=== PATIENT | female | born 1955 | race Caucasian/White ===

== ENCOUNTER 2024-05-14 23:27 | Inpatient (IN) | payer BC ==
[~2024-05-14] VITALS: Ht 160 cm; Wt 63.6 kg
[2024-05-14] MEDS ORDERED: VANCOMYCIN 1 GM /D5W 250 ML PB IV ONE (23:45)
[2024-05-15] MEDS: VANCOMYCIN 1 GM in IV D5W 250 ML IV ONE (00:02)
[2024-05-15 00:04] LABS: BASOPHILS % (AUTO) 0.5 % (0.0-2.0); EOSINOPHILS # (AUTO) 0.6 K/uL (0.0-0.7); EOSINOPHILS % (AUTO) 5.9 % (0.0-6.0); HEMATOCRIT 29 % (33-45); HEMOGLOBIN 9.3 g/dL (11.5-14.8); LYMPHOCYTES # (AUTO) 0.9 K/uL (0.8-4.8); LYMPHOCYTES % (AUTO) 9.6 % (20.0-44.0); MEAN CORPUSCULAR HEMOGLOBIN 27 PG (26.0-33.0); MEAN CORPUSCULAR HGB CONC 32 g/dl (31.0-36.0); MEAN CORPUSCULAR VOLUME 83 fL (82-100); MONOCYTES % (AUTO) 10.5 % (2.0-12.0); NEUTROPHILS % (AUTO) 73.5 % (43.0-81.0); PLATELET COUNT (AUTO) 360 K/uL (150-450); RED BLOOD CELL COUNT(AUTO) 3.46 MIL/uL (4.0-5.2); WHITE BLOOD COUNT (AUTO) 9.5 K/uL (4.3-11.0)
[2024-05-15 00:21] LABS: LACTIC ACID 1.7 mmol/L (0.4-2.0)
[2024-05-15 00:23] LABS: CARBON DIOXIDE 27 mmol/L (21-32); CHLORIDE 102 mmol/L (98-107); GLUCOSE 153 mg/dL (74-106); POTASSIUM 3.5 mmol/L (3.5-5.1); SODIUM SERUM 138 mmol/L (136-145); UREA NITROGEN, BLOOD 31 mg/dL (7-18)
[2024-05-15 00:34] LABS: INR 1.11 (0.91-1.10); PARTIAL THROMBOPLASTIN TIME 27.8 SEC (24.3-34.3); PROTHROMBIN TIME 11.7 SECS (9.2-11.1)
[2024-05-15 00:41] LABS: ALANINE AMINOTRANSFERASE 29 U/L (12-78); ALBUMIN 1.6 g/dL (3.4-5.0); ALKALINE PHOSPHATASE 189 U/L (46-116); ASPARTATE AMINOTRANSFERASE 31 U/L (15-37); BILIRUBIN,DIRECT 0.1 mg/dL (0.0-0.2); BILIRUBIN,TOTAL 0.2 mg/dL (0.2-1.0); TOTAL PROTEIN, SERUM 6.7 g/dL (6.4-8.2)
[2024-05-15 00:44] LABS: APPEARANCE,URINE CLEAR (CLEAR); BILIRUBIN,URINE NEGATIVE (NEGATIVE); BLOOD, URINE NEGATIVE Ery/uL (NEGATIVE); COLOR,URINE YELLOW (YELLOW); KETONES,URINE NEGATIVE (NEGATIVE); LEUKOCYTE ESTERASE ,URINE NEGATIVE (NEGATIVE); NITRITE, URINE NEGATIVE (NEGATIVE); PH,URINE 5.5 (5.0-8.0); PROTEIN,URINE TRACE mg/dl (NEGATIVE); UGLUCOSE NEGATIVE (NEGATIVE); UROBILINOGEN,URINE 0.2 EU/dL (0.2)
[2024-05-15] MEDS ORDERED: AZITHROMYCIN 500 MG VIAL ONE (01:06)
[2024-05-15] MEDS ORDERED: CEFTRIAXONE 1GM BAG (ER ONLY) 50 ML IV ONE (01:06)
[2024-05-15] MEDS: AZITHROMYCIN 500 MG in IV D5W 250 ML IV ONE (01:17)
[2024-05-15] MEDS: IV NS 0.9% 1,000 ML BAG IV ONE (01:22)
[2024-05-15] MEDS: CEFTRIAXONE 1GM BAG (ER ONLY) 1 GM/50 ML PIGGYBACK IV ONE (01:26)
[2024-05-15] MEDS ORDERED: MAG HYDROX/AL HYDROX/SIMETH 30 ML UDC PO PRN (02:00)
[2024-05-15] MEDS ORDERED: ONDANSETRON HCL/PF 4 MG/2 ML VIAL IVP PRN (02:00)
[2024-05-15] MEDS ORDERED: Z GUARD REMEDY 4 OZ OINT TP PRN (02:00)
[2024-05-15] MEDS ORDERED: DEXTROSE 50%-WATER 50 ML DISP.SYRIN IV PRN (02:00)
[2024-05-15] MEDS ORDERED: MAGNESIUM HYDROXIDE 30 ML UDC PO PRN ×2 (02:00→09:30)
[2024-05-15 04:00] VITALS: BP 125/50; TEMP 98.2; O2SAT 99
[2024-05-15] MEDS: ACETAMINOPHEN 325 MG TABLET PO PRN (04:44)
[2024-05-15] MEDS: IV NS 0.9% 1,000 ML IV PRN (04:45)
[2024-05-15] MEDS: BLOOD SUGAR DIAGNOSTIC 1 EACH STRIP IN SCH (07:23)
[2024-05-15 08:00] VITALS: BP 121/43; TEMP 97.7; O2SAT 100
[2024-05-15] MEDS ORDERED: PANT40TA2 PO (08:03)
[2024-05-15] MEDS ORDERED: FERR325T23 PO (08:03)
[2024-05-15] MEDS ORDERED: CLOP75TA15 PO (08:03)
[2024-05-15] MEDS ORDERED: INSU100V39 SQ (08:03)
[2024-05-15] MEDS ORDERED: ATOR10TA PO (08:03)
[2024-05-15] MEDS ORDERED: ACET-2030 PO (08:03)
[2024-05-15] MEDS ORDERED: SPIR25TA6 PO (08:03)
[2024-05-15] MEDS ORDERED: CARV12.5 PO (08:03)
[2024-05-15] MEDS ORDERED: GABA600T12 PO (08:03)
[2024-05-15] MEDS ORDERED: LEVO100T PO (08:03)
[2024-05-15] MEDS ORDERED: ASCO-352 PO (08:03)
[2024-05-15] MEDS ORDERED: ALPR0.25 PO (08:03)
[2024-05-15] MEDS ORDERED: IPRA3AMP22 IH (08:03)
[2024-05-15] MEDS ORDERED: SITA100T PO (08:03)
[2024-05-15] MEDS ORDERED: BUME1TAB34 PO (08:03)
[2024-05-15] MEDS ORDERED: SACU1TAB PO (08:03)
[2024-05-15] MEDS ORDERED: ASPI-1169 PO (08:03)
[2024-05-15] MEDS ORDERED: CHOL100062 PO (08:03)
[2024-05-15] MEDS ORDERED: LEVO750T46 PO (08:03)
[2024-05-15] MEDS ORDERED: BISA10SU11 RC (08:03)
[2024-05-15] MEDS ORDERED: VANCOMYCIN HCL IV (08:03)
[2024-05-15] MEDS ORDERED: HYDR2TAB4 PO (08:03)
[2024-05-15] MEDS ORDERED: MAGN400O6 PO (08:03)
[2024-05-15] MEDS ORDERED: MULT-594 PO (08:03)
[2024-05-15] MEDS ORDERED: BISACODYL SUPP (10 MG) 10 MG/SUPP.RECT SUPP.RECT RC PRN (09:30)
[2024-05-15] MEDS ORDERED: ACETAMINOPHEN ES 500 MG TABLET PO PRN (09:30)
[2024-05-15] MEDS: GABAPENTIN 400 MG CAPSULE PO SCH (09:39)
[2024-05-15] MEDS: SACUBITRIL/VALSARTAN 24/26MG TABLET PO SCH (09:39)
[2024-05-15] MEDS: HYDROMORPHONE HCL 2 MG TABLET PO PRN (11:31)
[2024-05-15 12:00] VITALS: BP 121/43; TEMP 97.7; O2SAT 100
[2024-05-15] MEDS: FERROUS SULFATE (325 MG) 325 MG/TAB TABLET PO SCH (16:19)
[2024-05-15] MEDS: CARVEDILOL 12.5 MG TABLET PO SCH (16:20)
[2024-05-15] MEDS: BUMETANIDE (1 MG) 1 MG TABLET PO SCH (16:20)
[2024-05-15] MEDS: INSULIN REGULAR, HUMAN 100 UNIT/ML 3 ML VIAL SQ PRN (17:14)
[2024-05-15 18:00] VITALS: BP 120/49; TEMP 97.7; O2SAT 96
[2024-05-15 20:00] VITALS: BP 111/44; TEMP 97.9; O2SAT 98
[2024-05-15] MEDS: CEFTRIAXONE 1 G in IV D5W 50 ML IV SCH (20:22)
[2024-05-15] MEDS: AZITHROMYCIN 500 MG in IV D5W 250 ML IV SCH (21:39)
[2024-05-15] MEDS: ATORVASTATIN 10 MG TABLET PO SCH (21:42)
[2024-05-15] MEDS: ZOLPIDEM TARTRATE 5 MG TABLET PO PRN (23:41)
[2024-05-16 04:00] VITALS: BP 102/44; TEMP 97.9; O2SAT 95
[2024-05-16 07:52] LABS: BASOPHILS # (AUTO) 0.1 K/uL (0.0-0.2); EOSINOPHILS # (AUTO) 0.6 K/uL (0.0-0.7); EOSINOPHILS % (AUTO) 6.3 % (0.0-6.0); HEMATOCRIT 30 % (33-45); HEMOGLOBIN 9.4 g/dL (11.5-14.8); LYMPHOCYTES % (AUTO) 11.3 % (20.0-44.0); MEAN CORPUSCULAR HEMOGLOBIN 27 PG (26.0-33.0); MEAN CORPUSCULAR HGB CONC 32 g/dl (31.0-36.0); MEAN CORPUSCULAR VOLUME 85 fL (82-100); MONOCYTES # (AUTO) 0.9 K/uL (0.1-1.30); MONOCYTES % (AUTO) 10.1 % (2.0-12.0); NEUTROPHILS # (AUTO) 6.3 K/uL (1.8-8.9); NEUTROPHILS % (AUTO) 71.3 % (43.0-81.0); PLATELET COUNT (AUTO) 367 K/uL (150-450); RED BLOOD CELL COUNT(AUTO) 3.51 MIL/uL (4.0-5.2); RED CELL DISTRIBUTION WIDTH 20.1 % (11.5-15.0); WHITE BLOOD COUNT (AUTO) 8.8 K/uL (4.3-11.0)
[2024-05-16 08:08] LABS: CREATININE 0.7 mg/dL (0.6-1.3); MAGNESIUM 1.6 mg/dL (1.8-2.4); PHOSPHORUS 3.6 mg/dL (2.5-4.9); POTASSIUM 3.5 mmol/L (3.5-5.1)
[2024-05-16] MEDS: PANTOPRAZOLE 40 MG TABLET.DR PO SCH (08:22)
[2024-05-16] MEDS: LEVOTHYROXINE SODIUM 100 MCG TABLET PO SCH (08:23)
[2024-05-16] MEDS: ASCORBIC ACID 500 MG TABLET PO SCH (08:24)
[2024-05-16] MEDS: SPIRONOLACTONE 25 MG TABLET PO SCH (08:49)
[2024-05-16] MEDS: CLOPIDOGREL BISULFATE 75 MG TABLET PO SCH (08:50)
[2024-05-16] MEDS: MAGNESIUM OXIDE 400 MG TABLET PO ONE (09:35)
[2024-05-16 12:00] VITALS: BP 112/45; TEMP 97.7; O2SAT 97
[2024-05-16 20:00] VITALS: BP 146/60; TEMP 98.6; O2SAT 97
[2024-05-17 04:00] VITALS: BP 124/64; TEMP 97.7; O2SAT 97
[2024-05-17 08:06] LABS: CALCIUM, SERUM 7.8 mg/dL (8.5-10.1); CREATININE 0.6 mg/dL (0.6-1.3); MAGNESIUM 1.6 mg/dL (1.8-2.4); POTASSIUM 3.3 mmol/L (3.5-5.1)
[2024-05-17] MEDS: MAGNESIUM OXIDE 400 MG TABLET PO ONE (09:28)
[2024-05-17] MEDS: POTASSIUM CHLORIDE 20 MEQ TAB.PRT.SR PO SCH (10:29)
[2024-05-17 12:00] VITALS: BP 134/51; TEMP 98.8; O2SAT 96
[2024-05-17] MEDS: THERAHONEY GEL 1.5 OZ TUBE TP SCH (12:43)
[2024-05-17] MEDS: CLOTRIMAZOLE 1% 15 GM TUBE TP SCH (17:27)
[2024-05-17 20:00] VITALS: BP 146/54; TEMP 98.2; O2SAT 97
[2024-05-18 04:00] VITALS: BP 113/46; TEMP 99.9; O2SAT 97
[2024-05-18 09:54] LABS: BASOPHILS # (AUTO) 0.1 K/uL (0.0-0.2); BASOPHILS % (AUTO) 1.2 % (0.0-2.0); EOSINOPHILS # (AUTO) 0.3 K/uL (0.0-0.7); EOSINOPHILS % (AUTO) 3.5 % (0.0-6.0); HEMATOCRIT 28 % (33-45); HEMOGLOBIN 8.9 g/dL (11.5-14.8); LYMPHOCYTES % (AUTO) 12.5 % (20.0-44.0); MEAN CORPUSCULAR HEMOGLOBIN 27 PG (26.0-33.0); MEAN CORPUSCULAR HGB CONC 32 g/dl (31.0-36.0); MEAN CORPUSCULAR VOLUME 83 fL (82-100); MONOCYTES # (AUTO) 0.7 K/uL (0.1-1.30); MONOCYTES % (AUTO) 9.4 % (2.0-12.0); NEUTROPHILS # (AUTO) 5.8 K/uL (1.8-8.9); NEUTROPHILS % (AUTO) 73.4 % (43.0-81.0); PLATELET COUNT (AUTO) 332 K/uL (150-450); RED BLOOD CELL COUNT(AUTO) 3.36 MIL/uL (4.0-5.2); RED CELL DISTRIBUTION WIDTH 20.2 % (11.5-15.0); WHITE BLOOD COUNT (AUTO) 7.9 K/uL (4.3-11.0)
[2024-05-18 10:04] LABS: CALCIUM, SERUM 8.1 mg/dL (8.5-10.1); CREATININE 0.6 mg/dL (0.6-1.3); POTASSIUM 3.2 mmol/L (3.5-5.1)
[2024-05-18 12:11] VITALS: BP 124/64; TEMP 97.7; O2SAT 97
[2024-05-18 16:47] VITALS: BP 126/66
[2024-05-18] MEDS: ALPRAZOLAM 0.25 MG TABLET PO PRN (17:12)
== END 2024-05-18 18:53 | DRG 622 ==
LOC: ER 23:44 → TELE 05-15 02:58 → TELE1 05-15 03:12 → MEDSG1 05-15 03:49
PROVIDERS: ADMIT Internal Medicine; ATTEND Internal Medicine
PROC: 0JB70ZZ Excision of Back Subcutaneous Tissue and Fascia, Open Approach (ICD-10-PCS; principal; 2024-05-18)
DX: E11.69 Type 2 diabetes mellitus with other specified complication (principal); E43 Unspecified severe protein-calorie malnutrition; L89.153 Pressure ulcer of sacral region, stage 3; I50.22 Chronic systolic (congestive) heart failure; M86.171 Other acute osteomyelitis, right ankle and foot; I13.0 Hypertensive heart and chronic kidney disease with heart failure and stage 1 through stage 4 chronic kidney disease, or unspecified chronic kidney disease; E11.52 Type 2 diabetes mellitus with diabetic peripheral angiopathy with gangrene; I96 Gangrene, not elsewhere classified; N17.0 Acute kidney failure with tubular necrosis; E11.22 Type 2 diabetes mellitus with diabetic chronic kidney disease; N18.9 Chronic kidney disease, unspecified; Z89.612 Acquired absence of left leg above knee; Z88.5 Allergy status to narcotic agent; Z88.8 Allergy status to other drugs, medicaments and biological substances; E11.40 Type 2 diabetes mellitus with diabetic neuropathy, unspecified; K21.9 Gastro-esophageal reflux disease without esophagitis; D64.9 Anemia, unspecified; L98.9 Disorder of the skin and subcutaneous tissue, unspecified; Z79.890 Hormone replacement therapy; Z79.84 Long term (current) use of oral hypoglycemic drugs; Z79.51 Long term (current) use of inhaled steroids; Z79.4 Long term (current) use of insulin; Z79.02 Long term (current) use of antithrombotics/antiplatelets; Z79.899 Other long term (current) drug therapy
CPT/HCPCS: 36415; 71045-TC; 73630-TC; 80048-TC; 80076-TC; 82962-TC; 83605-TC; 83735-TC; 84100-TC; 84484-TC; 85025-TC; 85730-TC; 87040-TC; 87081-TC; 87086-TC; 93307-TC; 93926-TC; 93971-TC; A4223; A6253; A6403; G0378; J0456; J0696; J1815; J3370; J7030; J7050; J7060